=== PATIENT | male | born 1995 | race Caucasian/White ===

== ENCOUNTER 2025-01-11 20:48 | Emergency (ER) | payer MEDICAID, SELFPAY ==
[2025-01-11 21:22] VITALS: BP 155/83; PULSE 85; RESP 18; TEMP 36.8; O2SAT 100; BMI 24.4
--- OUTSIDE RECORDS SUMMARY | 2025-01-11 21:35 | XMS_ITS | Clinical Summary ---
Author Organization [facility] Address [address] [place] [address] Care Team Providers Care Assisted Living Administrator Name Role Phone Unavailable Primary Care Provider Unavailabl e Allergies Active Allergy Reactions Criticality Noted Date Comments Penicillins Unknown - Patient st ates they do not know rxn details Low 11/03/2024 Sulfa Drugs Unknown - Patient st ates they do not know rxn details Low 11/03/2024 Encounters Date Type Department Care Team Description 11/03/2024 3:16 PM EDT - 11/03/2024 5:01 PM EDT Emergency [facility] Emergency Department [address] [place] [address] Impacted cerumen of both ears (Primary Dx); Hearing loss due to cerumen impaction, right Discharge Disposition: Home or Self Care 11/03/2024 Travel from Last 3 Months Social History Tobacco Use Types Packs/Day Years Used Date Smoking Tobacco: Never Assessed Sex and Gender Information Value Date Recorded Sex Assigned at Not on file Legal Sex Male 2:52 PM EDT Gender Identity Not on file Sexual Orientation Not on file Last Filed Vital Signs Vital Sign Reading Time Taken Comments Blood Pressure 111/66 11/03/2024 3:11 PM EDT Pulse 72 11/03/2024 3:11 PM EDT Temperature 36.8 C (98.2 F) 11/03/2024 3:11 PM EDT Respiratory Rate 18 11/03/2024 3:11 PM EDT Oxygen Saturation 95% 11/03/2024 3:11 PM EDT Inhaled Oxygen Concentration - - Weight 80.5 kg (177 lb 7.5 oz) 11/03/2024 3:11 P M EDT Height - - Body Mass Index - - Plan of Treatment Not on file Procedures Procedure Name Priority Date/Time Associated Diagnosis Comments TN REMOVAL IMPACTED CERUMEN IRRIGATION/LVG UNILAT Routine 11/03/2024 2:53 PM EDT from Last 3 Months Results * TN REMOVAL IMPACTED CERUMEN IRRIGATION/LVG UNILAT (11/03/2024 2:53 PM EDT) Narrative Mayuri Forbes MD - 11/03/2024 2:53 PM EDT Mayuri Forbes MD 11/03/2024 5:14 PM Impacted Ear Cerumen Removal Performed by: Corin Flower PA Authorized by: Mayuri Forbes MD Consent: Consent obtained: Verbal Consent given by: Patient Risks, benefits, and alternatives were discussed: yes [place] protocol: Patient identity confirmed: Verbally with patient Procedure details: Location: R ear Procedure type: irrigation Procedure outcomes: cerumen removed Post-procedure details: Inspection: No bleeding, ear canal clear and TM intact Hearing quality: Improved Procedure completion: Tolerated well, no immediate complications Mayuri Forbes MD IN CLINIC/BEDSIDE ORDERABLES Fi nal Result from Last 3 Months Insurance [place] [id number]
[2025-01-11 22:14] VITALS: BP 115/94; PULSE 87; RESP 16; TEMP 36.6; O2SAT 100
--- NOTE | 2025-01-11 22:14 | HMH.EDGENADL ---
Discharge Plan Disposition Patient Disposition: Home, Self-Care Condition: Good Prescriptions Prescriptions: New ondansetron 4 mg tablet,disintegrating 4 mg PO Q8H PRN (Reason: nausea and vomiting) 4 Days Qty: 12 0RF Referrals Follow up/Referrals: Provider,Referral, MD [Primary Care Provider, Medical] - See instructions Activity Restrictions/Add. Instructions Additional Instructions/Restrictions: You were evaluated in the emergency department today. Please slate picker your prescription for Zofran and take as needed for nausea and vomiting. Take Tylenol and ibuprofen as needed for pain. Eat a bland diet until symptoms have resolved. Return to the emergency department for new or worsening symptoms Clinical Impressions Clinical Impression: Nausea & vomiting Stand Alone Forms Stand Alone Forms: Work/School Release Instructions Patient Instructions: DI for Diarrhea and Traveler's Diarrhea in Adults, DI for Nausea in Adults Print Language Print Language: [place] Discharge ED Provider: Jaharia Grayson General Adult HPI General Chief complaint: Nausea/Vomiting/Diarrhea Stated complaint: nausea,cant eat or drink, abdominal pain Time Seen by Provider: 01/11/25 21:46 Mode of Arrival: Ambulatory Source of Information: Patient Description of Symptoms (Recalled from ER Triage Doc. by RN): emma presents for abdominal pain and n/v. 5/10 is what the patient rates it, no bowel or bladder issues. History of Present Illness HPI narrative: This patient is a 29-year-old male who denies having past medical history presenting to the emergency department for evaluation with concern for nausea and vomiting. Patient notes that he initially had some abdominal pain around 3:00 this morning after getting off of work, but that went away. He since then had nausea and vomiting and has had a hard time keeping things down. He notes that he had to leave work today because of the nausea and vomiting. He denies any fevers, changes to bowel movements, or urinary symptoms. He is not having any pain now. He states that he mainly came in because he had to leave work and needs a work excuse. Related Data Previous Rx's ?Medication ?Instructions ?Recorded ondansetron 4 mg disintegrating 4 mg PO Q8H PRN nausea and 01/11/25 tablet vomiting 4 days #12 tabs Allergies Allergy/AdvReac Type Severity Reaction Status Date / Time Penicillins (PCN) AdvReac Flushing Verified 01/11/25 21:52 Sulfa (Sulfonamide AdvReac Flushing Verified 01/11/25 21:52 Antibiotics) [facility] Disclaimer: The information contained in this section may have been updated after the patient was seen, as this information can be updated by other users. Social History Smoking Status: Light tobacco smoker alcohol intake: never current occupational status: employed Travel in the last 8 weeks?: None ROS Obtained: Yes All systems reviewed & no additional complaints except as documented Physical Exam General General appearance: alert and in no apparent distress Head Head exam: atraumatic and normocephalic Eye Eye exam: Present normal appearance, PERRL and EOMI ENT ENT exam: Present normal exam, normal oropharynx, mucous membranes moist and normal external ear exam Neck Neck exam: Present normal inspection, full ROM and trachea midline; Absent tenderness Chest Chest inspection: Present normal inspection and symmetric chest wall rise; Absent tenderness Respiratory Respiratory exam: Present normal lung sounds bilaterally; Absent respiratory distress, wheezes, stridor or accessory muscle use Cardiovascular Cardiovascular exam: Present regular rate and normal rhythm Abdominal Exam Abdominal exam: Present soft; Absent distention, tenderness or guarding Extremities Exam Extremities exam: Present normal inspection, full ROM and normal capillary refill; Absent tenderness or edema Back Exam Back exam: Present normal inspection and full ROM; Absent tenderness Neurological Exam Neurological exam: Present alert, oriented X3, CN II-XII intact and normal gait; Absent motor sensory deficit Psychiatric Psychiatric exam: Present normal affect and normal mood Skin Skin exam: Present warm and dry Medical Decision Making Medical Records Medical records reviewed: Yes I reviewed the patient's medical records. Screening: Per USPSTF and CDC recommendations, given the prevalence of disease in our region, it is our hospital?s policy to screen for HIV and viral Hepatitis for all patients aged 18 and over and those with ongoing risk factors. Leo Inquiry Pt receiving controlled substance: No Vital Signs: 01/11/25 21:22 Temperature 98.2 F Temperature Source Oral Pulse Rate [Right Radial] 85 Respiratory Rate 18 Blood Pressure [Right Arm] 155/83 H Blood Pressure Mean [Right Arm] 107 Blood Pressure Source [Right Arm] Automatic Cuff Blood Pressure Position [Right Arm] Sitting 02 Sat by Pulse Oximetry 100 Oxygen Delivery Method Room Air Lab Data Lab results reviewed: Yes I reviewed the patient's lab results. Orders (Tests/Meds): ED MEDICATIONS Discontinued Medications Generic Name Dose Route Start Last Admin Trade Name Freq PRN Reason Stop Dose Admin Ondansetron HCl 4 mg 01/11/25 22:05 Ondansetron 4mg Odt SL 01/11/25 22:06 ONCE ONE ORDERS Category Date Time Status UA [Urinalysis and Microscopic] Stat Lab 01/11/25 21:52 Stop Req Medical Decision Narrative: In summary, this patient is a 29-year-old male presenting to the Emergency Department for evaluation of initially abdominal pain that resolved, now nausea and vomiting. Differential diagnoses considered include but are not limited to gastroenteritis, appendicitis, colitis, constipation, cholecystitis. Ruling out the most morbid conditions drove assessment. On exam, the patient is well-appearing and has no abdominal tenderness. He states that the pain has not recurred throughout the day, he only has the nausea and vomiting. He comes in requesting nausea medication and work excuse. I offered lab evaluation as well as imaging to evaluate for surgical intra-abdominal pathology, but the patient reports that he is not having pain and does not think this is necessary. Given this, will treat symptomatically with oral Zofran. I prescribed Zofran and given work excuse. He was discharged with strict return precautions and instructions for close follow-up as well as supportive care Critical Care Critical Care Time Critical Care Time: No
[2025-01-11] MEDS: ONDANSETRON 4MG ODT 4 MG SL (22:17)
== END 2025-01-11 22:20 | disposition home or self-care (01) ==
PROVIDERS: Emergency Provider Emergency Medicine
DX: R11.2 Nausea with vomiting, unspecified (principal); R10.9 Unspecified abdominal pain
CPT/HCPCS: 99283; 99285; Q0162